=== PATIENT | female | born 1960 | race Caucasian/White ===

== ENCOUNTER 2018-04-05 20:51 | Emergency (ER) | payer BC ==
[2018-04-05] MEDS ORDERED: diPHENhydraMINE IV* 50 MG/ML 1 ml VIAL (BENADRYL) IV ONE (20:55)
[2018-04-05] MEDS ORDERED: methylPREDNISolone 125 MG* 2 ML VIAL IV ONE (20:55)
[2018-04-05] MEDS ORDERED: Famotidine IV* 10 MG/ML 2 ML (20 mg) IV SLOW PU ONE (20:55)
[2018-04-05] MEDS ORDERED: predniSONE TAB* 20 MG PO ONE (21:07)
--- NOTE | 2018-04-05 21:08 | ED ---
Allergic Reaction/Systemic - HPI Summary HPI Summary: [age]-year female presents with potentially allergic reaction today. She states that she got stung some 2 hours ago. Unknown insect stung on her left arm. She states that she felt like she might pass out. She took her EpiPen. States afterwards she felt very jittery. She denies any chest pain shortness breath currently. No vomiting or nausea. No difficulty swallowing. No rash. She states she cannot take Benadryl as it makes her feel very anxious. - History of Current Complaint Time Seen by Provider: 04/05/18 20:56 - Allergies/Home Medications Allergies/Adverse Reactions: Allergies Allergy/AdvReac Type Severity Reaction Status Date / Time bee venom protein (honey bee) Allergy Anaphylatic Verified 04/05/18 21:02 Shock nizatidine Allergy Rash Verified 04/05/18 21:02 PMH/Surg Hx/FS Hx/Imm Hx Endocrine/Hematology History: Denies: Hx Anticoagulant Therapy Cardiovascular History: Reports: Hx Hypertension GI History: Reports: Hx Gastroesophageal Reflux Disease, Hx Hiatal Hernia - SMALL Musculoskeletal History: Reports: Hx Tendonitis - LEFT WRIST Denies: Hx Osteoporosis Sensory History: Reports: Hx Contacts or Glasses - GLASSES Denies: Hx Hearing Aid Opthamlomology History: Reports: Hx Contacts or Glasses - GLASSES Neurological History: Denies: Other Neuro Impairments/Disorders - Cancer History Hx Chemotherapy: No Hx Radiation Therapy: No - Surgical History Surgery Procedure, Year, and Place: TONSILECTOMY, AGE 4, [facility]. wrist surgery 2013 [place] Hx Anesthesia Reactions: No Infectious Disease History: Denies: Traveled Outside the [place] in Last 30 Days - Family History Known Family History: Positive: None - Social History Alcohol Use: Occasionally Alcohol Amount: 2 DRINKS A WEEK Substance Use Type: Reports: None Smoking Status (MU): Never Smoked Tobacco Review of Systems Negative: Fever Negative: Chest Pain Negative: Shortness Of Breath Negative: Abdominal Pain Positive: Other - bug bite left arm All Other Systems Reviewed And Are Negative: Yes Physical Exam Triage Information Reviewed: Yes Vital Signs Reviewed: Yes Appearance: Positive: Well-Appearing Skin: Positive: Warm, Dry, Other - bug bite left arm Head/Face: Positive: Normal Head/Face Inspection Eyes: Positive: Normal, EOMI, TITI, Conjunctiva Clear ENT: Positive: Normal ENT inspection, Pharynx normal, TMs normal Respiratory/Lung Sounds: Positive: Clear to Auscultation, Breath Sounds Present Cardiovascular: Positive: Normal, RRR Abdomen Description: Positive: Nontender, Soft Bowel Sounds: Positive: Present Musculoskeletal: Positive: Normal Neurological: Positive: Normal Psychiatric: Positive: Normal Allergic Reaction Course/Dx - Course Course Of Treatment: [age]-year female presents with potentially allergic reaction today. She states that she got stung some 2 hours ago. Unknown insect stung on her left arm. She states that she felt like she might pass out. She took her EpiPen. States afterwards she felt very jittery. She denies any chest pain shortness breath currently. No vomiting or nausea. No difficulty swallowing. No rash. She states she cannot take Benadryl as it makes her feel very anxious. on exam lungs CTA. pharynx normal. no rash. gave dose of steriod and will have continue steriod. patient has dx of htn and can follow up with primary about such. patient understand and agrees with plan. - Diagnoses Differential Diagnosis/HQI/PQRI: Positive: Anaphylaxis, Local Allergic Reaction , Urticaria Provider Diagnoses: Bug bite Discharge - Sign-Out/Discharge Documenting (check all that apply): Patient Departure All imaging exams completed and their final reports reviewed: No Studies - Discharge Plan Condition: Good Disposition: HOME Prescriptions: EPINEPHrine [Epipen] 0.3 mg IJ DAILY #1 auto.injct predniSONE TAB* [Deltasone TAB*] 50 mg PO DAILY #4 tab Patient Education Materials: Insect Bite or Sting (ED) Referrals: Rosina Mazariegos RN [Primary Care Provider] - Additional Instructions: Take steroid once a day for 4 days starting tomorrow Return to ED if shortness of breath, chest pain, or if develop any new or worsening symptoms - Billing Disposition and Condition Condition: GOOD Disposition: Home
[2018-04-05 21:11] VITALS: BP 136/92
== END 2018-04-05 21:25 | disposition home or self-care (01) ==
LOC: UCEAST 20:51
DX: T63.481A Toxic effect of venom of other arthropod, accidental (unintentional), initial encounter (principal); Y92.9 Unspecified place or not applicable; Z88.8 Allergy status to other drugs, medicaments and biological substances; Z91.030 Bee allergy status; I10 Essential (primary) hypertension
CPT/HCPCS: 99212; G0463; J7512

== ENCOUNTER 2019-06-20 07:38 | Emergency (ER) | payer BC ==
[2019-06-20 07:54] VITALS: BP 130/100
--- NOTE | 2019-06-20 08:30 | UC ---
General HPI - HPI Summary HPI Summary: Patient is a 58yo female presenting with a tick bite to right lower abdomen that she discovered this morning. She believes that it attached last night. Patient states she removed the tick but believes that the head is still in her skin and came to have it removed. Denies bleeding or drainage. Denies fever and chills. - History of Current Complaint Chief Complaint: [place] Stated Complaint: TICK BITE Hx Obtained From: Patient Pain Intensity: 2 - Allergy/Home Medications Allergies/Adverse Reactions: Allergies Allergy/AdvReac Type Severity Reaction Status Date / Time bee venom protein (honey bee) Allergy Anaphylatic Verified 06/20/19 07:48 Shock nizatidine Allergy Rash Verified 06/20/19 07:48 Home Medications: Home Medications Magnesium Oxide [Magnesium] 250 mg PO DAILY 06/20/19 [History Confirmed 06/20/19 ] Multivitamins/Minerals TAB* [Theragran/minerals TAB*] 1 tab PO DAILY 06/20/19 [ History Confirmed 06/20/19] PMH/Surg Hx/FS Hx/Imm Hx Other History Of: Negative For: Anticoagulant Therapy - Surgical History Surgical History: Yes Surgery Procedure, Year, and Place: TONSILECTOMY, AGE 4, [facility]. wrist [facility] - Family History Known Family History: Positive: None - Social History Occupation: Employed Full-time Alcohol Use: Occasionally Alcohol Amount: 2 DRINKS A WEEK Substance Use Type: None Smoking Status (MU): Never Smoked Tobacco Review of Systems All Other Systems Reviewed And Are Negative: Yes Constitutional: Positive: Negative. Negative: Fever, Chills Skin: Positive: Other Respiratory: Positive: Negative - Tick bite of abdomen Cardiovascular: Positive: Negative Gastrointestinal: Positive: Negative. Negative: Vomiting, Nausea Neurological: Positive: Negative Physical Exam Triage Information Reviewed: Yes Appearance: Well-Appearing, No Pain Distress, Well-Nourished Vital Signs: Initial Vital Signs Temp 97.1 F 06/20/19 07:45 Pulse 72 06/20/19 07:45 Resp 16 06/20/19 07:45 BP 145/100 06/20/19 07:45 Pulse Ox 97 06/20/19 07:45 Vital Signs Reviewed: Yes Eyes: Positive: Conjunctiva Clear ENT: Positive: Hearing grossly normal Neck: Positive: Supple Respiratory: Positive: No respiratory distress Neurological: Positive: Alert Psychological: Positive: Age Appropriate Behavior Skin: Positive: Other - Small area of erythema where the tick was attached. Small black dot in the center presumably the head still stuck in the skin. no sign of infection Course/Dx - Course Course Of Treatment: Educated the patient on tick bites and Lyme disease. Informed her that I will not remove the head because it is deep in her skin and I do not want to cause infection. Instructed to apply warm compresses. I directed her to follow up with her PCP if needed or return if she has signs and symptoms of infection over the next few days. Patient voiced understanding and agreed with the treatment plan. - Diagnoses Provider Diagnosis: Tick bite of abdomen Discharge ED - Sign-Out/Discharge Documenting (check all that apply): Patient Departure All imaging exams completed and their final reports reviewed: No Studies - Discharge Plan Condition: Stable Disposition: HOME Patient Education Materials: Tick Bite (ED) Referrals: Genoveva Olivarez [Primary Care Provider] - If Needed Additional Instructions: As discussed, no treatment of your tick bite is required at this time. You may apply warm compresses to the area 2-3 times daily to help ease the remainder of the tick out. Follow up with your PCP if you experience a rash where you were the tick bit you within the next month. Return or go to the emergency room if you experience fever, nausea and vomiting , or increasing redness, warmth, or drainage from the area. - Billing Disposition and Condition Condition: STABLE Disposition: Home - Attestation Statements Provider Attestation: I was available for consult. This patient was seen by the KEANU. The patient was not presented to, seen by, or examined by me. -Abby
== END 2019-06-20 08:15 | disposition home or self-care (01) ==
LOC: UCEAST 07:38
DX: S30.861A Insect bite (nonvenomous) of abdominal wall, initial encounter (principal); Z88.8 Allergy status to other drugs, medicaments and biological substances; Z91.030 Bee allergy status; W57.XXXA Bitten or stung by nonvenomous insect and other nonvenomous arthropods, initial encounter; Y92.9 Unspecified place or not applicable
CPT/HCPCS: 99211; G0463